=== PATIENT | male | born 1980 | race Caucasian/White ===

== ENCOUNTER → 2020-01-13 | Outpatient (CLI) | payer BC ==
--- NOTE | 2020-01-13 09:27 | RAD ---
PROCEDURE: FOOT LEFT 3V STUDY DATE: 01/13/2020 CLINICAL INDICATION / HISTORY: Reason: LEFT FOOT PAIN ONSET SATURDAY, CONCERN FOR GOUT / Spl. Instructions: / History: . TECHNIQUE: AP, lateral and oblique views of the left foot. COMPARISON: None FINDINGS: No fracture or dislocation is identified. The bone density is normal. The joint space widths are maintained, but there is subtle cortical irregularity on the medial aspect of the distal first metatarsal with adjacent lucency. This could represent an early marginal erosion. Otherwise no erosions to suggest an inflammatory arthropathy. No soft tissue abnormality is seen. IMPRESSION: Subtle cortical irregularity on the medial aspect of the first metatarsal. Correlate clinically and consider follow-up. Otherwise normal left foot x-rays. Electronically signed by: Liang Griffin MD (01/13/2020 9:24 AM) [id number]
== END | disposition home or self-care (01) ==
LOC: DXRAD 08:39
PROVIDERS: ATTEND Specialist
DX: M79.672 Pain in left foot (principal)
CPT/HCPCS: 73630

== ENCOUNTER → 2020-01-28 | Outpatient (CLI) | payer BC ==
--- NOTE | 2020-01-28 16:28 | RAD ---
3 views of the left foot without comparison for left foot pain. FINDINGS: There is no fracture, dislocation, or acute osseous abnormality identified. Joints and soft tissues are grossly unremarkable. No significant degenerative changes. IMPRESSION: 1. No acute osseous abnormality. Electronically signed by: Geoffrey Ji MD (01/28/2020 4:25 PM) [id number]
--- NOTE | 2020-01-28 16:28 | RAD ---
PA chest radiograph along with 2 views of the left ribs, all without comparison for history of left rib pain. FINDINGS: Lungs are clear. Heart size within normal limits. No significant osseous abnormalities are seen. Specifically, no radiographically apparent rib fractures on the left. IMPRESSION: 1. No acute cardiopulmonary abnormality. 2. No radiographically evident rib fractures. Electronically signed by: Geoffrey Ji MD (01/28/2020 4:25 PM) [id number]
== END ==
LOC: DXRAD 12:59
PROVIDERS: ATTEND Specialist
DX: M79.672 Pain in left foot (principal); R07.82 Intercostal pain
CPT/HCPCS: 71101; 73630

== ENCOUNTER 2021-04-20 14:29 | Emergency (ER) | payer BC ==
[~2021-04-20] VITALS: Ht 180.3 cm; Wt 112.7 kg
[2021-04-20] MEDS ORDERED: MORPHINE SULFATE 2 MG/ML DISP.SYRIN. IV/SQ PRN (15:00)
[2021-04-20] MEDS ORDERED: NITROGLYCERIN SUBLINGUAL 0.4 MG BOTTLE OF 25. SL PRN (15:00)
[2021-04-20] MEDS ORDERED: ASPIRIN 325 MG TABLET PO ONE (15:00)
[2021-04-20] MEDS ORDERED: ASPIRIN 325 MG TABLET ONE (15:08)
--- NOTE | 2021-04-20 15:31 | RAD ---
Single view of the chest. 04/20/2021 3:20 PM Indication: Reason: chest pain / Spl. Instructions: / History: Comparison: Chest radiograph January 28, 2020 Findings: There is no focal consolidation. There is no pleural effusion or pneumothorax. The cardiome diastinal silhouette and pulmonary vasculature are within normal limits. No acute osseous abnormaliti es are seen. Impression: No evidence of acute cardiopulmonary process. Electronically signed by: Ronnie López MD (04/20/2021 3:28 PM) [id number]
[2021-04-20 15:39] LABS: BASO % 1 % (0-3); EOS # 0.1 x10^3/uL (0.0-0.7); EOS % 2 % (0-3); HEMOGLOBIN 15.1 g/dL (13.0-17.5); LYMPH # 3.2 x10^3/uL (1.0-4.8); LYMPH % 33 % (24-48); MEAN CORPUSCULAR HEMOGLOBIN 32 pg (25-35); MEAN CORPUSCULAR HGB CONC 34 g/dL (31-37); MEAN CORPUSCULAR VOLUME 92 fL (79-100); MONO # 0.6 x10^3/uL (0.0-1.1); MONO % 6 % (0-9); NEUT # 5.6 x10^3uL (1.8-7.7); NEUT % 58 % (31-73); PLATELET COUNT 332 x10^3/uL (140-400); RED BLOOD COUNT 4.78 x10^6/uL (4.30-5.70); RED CELL DISTRIBUTION WIDTH 13.4 % (11.5-14.5); WHITE BLOOD COUNT 9.5 x10^3/uL (4.0-11.0)
[2021-04-20 15:52] LABS: CALCIUM 9.1 mg/dL (8.5-10.1); GFR 81.9; POTASSIUM 3.7 mmol/L (3.5-5.1)
[2021-04-20 16:06] LABS: INFLUENZA A PATIENT NEGATIVE (NEGATIVE); INFLUENZA B PATIENT NEGATIVE (NEGATIVE)
[2021-04-20 16:09] LABS: ALBUMIN/GLOBULIN RATIO 1.1 (1.0-1.7); TOTAL BILIRUBIN 0.2 mg/dL (0.2-1.0); TOTAL PROTEIN 7.6 g/dL (6.4-8.2)
--- NOTE | 2021-04-20 16:10 | EKG ---
[address] [address] Test Date: 2021-04-20 Test Time: 15:18:21 Pat Name: CRUZITO LEHMAN Department: Room: Gender: M Cyber Security Specialist: YENI : 1980 Requested By: ROSANNA KUO Order Number: [id number] Reading MD: Adi Rhoades Measurements Intervals Force Rate: 77 P: 37 NH: 140 QRS: -5 QRSD: 96 T: 27 QT: 442 QTc: 502 Interpretive Statements SINUS RHYTHM ATRIAL PREMATURE COMPLEX(ES) LEFTWARD AXIS PROLONGED QT Electronically Signed On 04-21-2021 14:32:09 [employer]CHIT[employer] by Adi Rhoades
[2021-04-20 18:48] LABS: BARBITURATES NEG (NEG); BENZODIAZEPINES NEG (NEG); CANNABINOIDS NEG (NEG); COCAINE NEG (NEG); METHADONE NEG (NEG); OPIATES POS (NEG); PHENCYCLIDINE NEG (NEG)
[2021-04-20 18:54] LABS: AMPHETAMINE/METHAMPHETAMINE NEG (NEG)
[2021-04-20 19:02] LABS: BACTERIA,URINE 0 /HPF (0-FEW); BILIRUBIN,URINE NEG (NEG); CLARITY,URINE CLEAR; COLOR,URINE YELLOW; GLUCOSE,URINE NEG (NEG); NITRITE,URINE NEG (NEG); RBC,URINE OCC /HPF (0-2); SQUAMOUS EPITHELIAL CELL,UR FEW /LPF; UROBILINOGEN,URINE 0.2 mg/dL (0.2 mg/dL); WBC,URINE OCC /HPF (0-4)
--- NOTE | 2021-04-20 19:04 | PHYS DOC ---
Past History Additional Past Medical Histor: GOUT (ROSANNA KUO APRN) Past Surgical History: No Surgical History (ROSANNA KUO APRN) Alcohol Use: None (ROSANNA KUO APRN) Adult General Chief Complaint Chief Complaint: CHEST PAIN HPI HPI Patient is a 41-year-old male patient presented to the ED today complaining of a 4 out of 10 generalized chest pain, symptoms have been going on intermittently since this morning. Denies anything exacerbating or relieving his pain. Denies any pain radiating to his back. He states he has had similar pain before but was not evaluated. He is also complaining of COVID symptoms including chest congestion, body aches, symptoms have been going on for a while. Denies any fever. (ROSANNA KUO APRN) Review of Systems Review of Systems Constitutional: Denies fever or chills [] Eyes: Denies change in visual acuity, redness, or eye pain [] HENT: Reports chest congestion] Respiratory: Reports cough, denies shortness of breath Cardiovascular: Reports chest pain GI: Denies abdominal pain, nausea, vomiting, bloody stools or diarrhea [] : Denies dysuria or hematuria [] Musculoskeletal: Denies back pain or joint pain [] Integument: Denies rash or skin lesions [] Neurologic: Denies headache, focal weakness or sensory changes [] All other systems were reviewed and found to be within normal limits, except as documented in this note. (ROSANNA KUO APRN) Current Medications Current Medications Current Medications Medications (Trade) Dose Ordered Sig/Shanika Start Time Stop Time Status Last Admin Dose Admin Aspirin (Samanta Aspirin) 325 mg STK-MED ONCE 04/20/21 15:08 04/20/21 15:08 DC Morphine Sulfate (Morphine 2mg Syringe) 2 mg PRN Q15MIN PRN 04/20/21 15:00 04/21/21 14:59 04/20/21 15:22 2 MG Nitroglycerin (Nitrostat) 0.4 mg PRN Q5MIN PRN 04/20/21 15:00 04/21/21 14:59 04/20/21 15:23 0.4 MG (ROSANNA KUO WAITER/WAITRESS INFORMAL) Allergies Allergies Allergies Coded Allergies Type Severity Reaction Last Updated Verified No Known Drug Allergies 06/18/13 No (MUTUNGA,ROSANNA M WAITER/WAITRESS INFORMAL) Physical Exam Physical Exam Constitutional: Well developed, well nourished, no acute distress, non-toxic tan earance. [] HENT: Normocephalic, atraumatic, bilateral external ears normal, oropharynx moist, no oral exudates, nose normal. [] Eyes: PERRLA, EOMI, conjunctiva normal, no discharge. [] Neck: Normal range of motion, no tenderness, supple, no stridor. [] Cardiovascular:Heart rate regular rhythm, no murmur [] Lungs & Thorax: Bilateral breath sounds clear to auscultation [] Abdomen: Bowel sounds normal, soft, no tenderness, no masses, no pulsatile masses. [] Skin: Warm, dry, no erythema, no rash. [] Back: No tenderness, no CVA tenderness. [] Extremities: No tenderness, no cyanosis, no clubbing, ROM intact, no edema. [] Neurologic: Alert and oriented X 3, normal motor function, normal sensory function, no focal deficits noted. [] Psychologic: Affect normal, judgement normal, mood normal. [] (ROSANNA KUO WAITER/WAITRESS INFORMAL) Current Patient Data Vital Signs Vital Signs Date Time Temp Pulse Resp B/P (MAP) Pulse Ox O2 Delivery O2 Flow Rate FiO2 04/20/21 17:45 90 16 111/68 (82) 100 Room Air 04/20/21 14:47 98.6 Lab Results Laboratory Tests Test 04/20/21 15:01 04/20/21 15:02 04/20/21 18:05 04/20/21 18:09 White Blood Count 9.5 x10^3/uL (4.0-11.0) Red Blood Count 4.78 x10^6/uL (4.30-5.70) Hemoglobin 15.1 g/dL (13.0-17.5) Hematocrit 44.0 % (39.0-53.0) Mean Corpuscular Volume 92 fL (79-100) Mean Corpuscular Hemoglobin 32 pg (25-35) Mean Corpuscular Hemoglobin Concent 34 g/dL (31-37) Red Cell Distribution Width 13.4 % (11.5-14.5) Platelet Count 332 x10^3/uL (140-400) Neutrophils (%) (Auto) 58 % (31-73) Lymphocytes (%) (Auto) 33 % (24-48) Monocytes (%) (Auto) 6 % (0-9) Eosinophils (%) (Auto) 2 % (0-3) Basophils (%) (Auto) 1 % (0-3) Neutrophils # (Auto) 5.6 x10^3uL (1.8-7.7) Lymphocytes # (Auto) 3.2 x10^3/uL (1.0-4.8) Monocytes # (Auto) 0.6 x10^3/uL (0.0-1.1) Eosinophils # (Auto) 0.1 x10^3/uL (0.0-0.7) Basophils # (Auto) 0.0 x10^3/uL (0.0-0.2) Sodium Level 141 mmol/L (136-145) Potassium Level 3.7 mmol/L (3.5-5.1) Chloride Level 103 mmol/L (98-107) Carbon Dioxide Level 28 mmol/L (21-32) Anion Gap 10 (6-14) Blood Urea Nitrogen 14 mg/dL (8-26) Creatinine 1.0 mg/dL (0.7-1.3) Estimated GFR (Cockcroft-Gault) 81.9 BUN/Creatinine Ratio 14 (6-20) Glucose Level 85 mg/dL (70-99) Calcium Level 9.1 mg/dL (8.5-10.1) Total Bilirubin 0.2 mg/dL (0.2-1.0) Aspartate Amino Transferase (AST) 32 U/L (15-37) Alanine Aminotransferase (ALT) 76 U/L (16-63) H Alkaline Phosphatase 78 U/L (46-116) Creatine Kinase 98 U/L (39-308) Creatine Kinase MB (Mass) 0.6 ng/mL (0.0-3.6) Creatine Kinase MB Relative Index 0.6 % (0-4) Troponin I High Sensitivity < 4 ng/L (4-75) L 5 ng/L (4-75) QF-Qeh-T-Type Natriuretic Peptide 16 pg/mL (0-124) Total Protein 7.6 g/dL (6.4-8.2) Albumin 4.0 g/dL (3.4-5.0) Albumin/Globulin Ratio 1.1 (1.0-1.7) Influenza Type A (Rapid) Negative (NEGATIVE) Influenza Type B (Rapid) Negative (NEGATIVE) Urine Opiates Screen Pos (NEG) Urine Methadone Screen Neg (NEG) Urine Barbiturates Neg (NEG) Urine Phencyclidine Screen Neg (NEG) Urine Amphetamine/Methamphetamine Neg (NEG) Urine Benzodiazepines Screen Neg (NEG) Urine Cocaine Screen Neg (NEG) Urine Cannabinoids Screen Neg (NEG) Urine Ethyl Alcohol Neg (NEG) (ROSANNA KUO APRN) EKG EKG [address] Driver sinus rhythm heart rate 77 no STEMI [] (ROSANNA KUO APRN) Radiology/Procedures Radiology/Procedures []PROCEDURE: PORTABLE CHEST 1V Single view of the chest. 04/20/2021 3:20 PM Indication: Reason: chest pain / Spl. Instructions: / History: Comparison: Chest radiograph January 28, 2020 Findings: There is no focal consolidation. There is no pleural effusion or pneumothorax. The cardiomediastinal silhouette and pulmonary vasculature are within normal limits. No acute osseous abnormalities are seen. Impression: No evidence of acute cardiopulmonary process. Electronically signed by: Ronnie Zuñiga MD (04/20/2021 3:28 PM) [id number] DICTATED AND SIGNED BY: RONNIE ZUÑIGA MD DATE: 04/20/21 1528 CC: BRE HARTMANN MD; ROSANNA KUO APRN ~MTH0 0 (ROSANNA KUO APRN) Heart Score C/O Chest Pain: Yes HEART Score for Chest Pain: HEART Score for Chest Pain Response (Comments) Value History Slighlty/Non-Suspicious 0 ECG Normal 0 Age < 45 0 Risk Factors No Risk Factors 0 Troponin < Normal Limit 0 Total 0 Risk Factors: Risk Factors: DM, Current or recent (<one month) smoker, HTN, HLP, family history of CAD, obesity. Risk Scores: Risk Factors: DM, Current or recent (<one month) smoker, HTN, HLP, family history of CAD, obesity. (ROSANNA KUO APRN) Course & Med Decision Making Course & Med Decision Making Pertinent Labs and Imaging studies reviewed. (See chart for details) This is a 41-year-old male patient presented to the ED today complaining of chest pain that began today, also complaining of COVID symptoms including chest congestion. EKG is negative, 2 high-sensitivity troponins were done which were negative. CBC, CMP with no acute findings. Vitals are very stable. Negative influenza a and B. Pending COVID PCR. Discharge to home. Follow-up with PCP and banquet set up person in 1 week if symptoms persist. Instructed to return to the ED at any point symptoms worsen (ROSANNA KUO APRN) Dragon Disclaimer Dragon Disclaimer This electronic medical record was generated, in whole or in part, using a voice recognition dictation system. (ROSANNA KUO APRN) Departure Departure: Impression: Primary Impression: Chest pain Additional Impressions: Person under investigation for COVID-19 URI (upper respiratory infection) Disposition: HOME / SELF CARE / HOMELESS Condition: STABLE Referrals: BRE HARTMANN MD (PCP) Follow-up with your primary care doctor in 1 week Patient Instructions: Chest Pain (Nonspecific), [id number], Upper Respiratory Infection, Adult, [id number] Additional Instructions: You were evaluated in the emergency room for chest pain, your cardiac work-up is negative. You were tested for influenza-your test is negative. Your PCR COVID test is pending. When results come back we will call you and let you know. Please take Tylenol or Motrin for pain. Quarantine yourself until you get your COVID PCR test. Come back to the ED at any point symptoms worsen Attending Co-Sign Attending Co-Sign The patient was seen and interviewed as well as examined at the bedside. The chart was reviewed. The case was discussed. Agree with the plan of care. (MISAEL JONES MD) Attending Signature Attending Signature I have participated in the care of this patient and I have reviewed and agree with all pertinent clinical information above including history, exam, and recommendations. (MISAEL JONES MD) Problem Qualifiers Primary Impression: Chest pain Chest pain type: unspecified Qualified Codes: R07.9 - Chest pain, unspecified Additional Impressions: URI (upper respiratory infection) URI type: unspecified URI Qualified Codes: J06.9 - Acute upper respiratory infection, unspecified ROSANNA KUO APRN Apr 20, 2021 19:04 MISAEL JONES MD Apr 24, 2021 17:51
[2021-04-20 19:48] VITALS: BP 120/70
== END 2021-04-20 19:48 | disposition home or self-care (01) ==
LOC: ER 14:29
DX: R07.89 Other chest pain (principal); J06.9 Acute upper respiratory infection, unspecified; Z20.822 Contact with and (suspected) exposure to COVID-19
CPT/HCPCS: 36415; 71045; 80053; 80307; 81001; 82553; 83880; 84443; 84484; 85025; 87804; 93005; 96374; 99285; C9803; J2270; U0003